=== PATIENT | female | born 1940 | race Caucasian/White ===

== ENCOUNTER 2019-06-27 13:17 | Emergency (ER) | payer OTHER ==
[~2019-06-27] VITALS: Ht 157.5 cm; Wt 90.7 kg
[2019-06-27 15:01] VITALS: BP 140/80
== END 2019-06-27 15:03 | disposition home or self-care (01) ==
LOC: ER 13:17
DX: R07.89 Other chest pain (principal); I10 Essential (primary) hypertension; W17.89XA Other fall from one level to another, initial encounter; Y93.89 Activity, other specified; Y92.89 Other specified places as the place of occurrence of the external cause; Y99.8 Other external cause status